=== PATIENT | female | born 1980 | race African-American/Black ===

== ENCOUNTER 2018-04-26 18:56 | Emergency (ER) | payer OTHER ==
[~2018-04-26] VITALS: Ht 157.5 cm; Wt 93.9 kg
[2018-04-26 19:08] VITALS: Ht 157.5 cm; Wt 93.9 kg
[2018-04-26 20:47] LABS: BASOPHIL % 0.4 % (0-2); PLATELET COUNT 214 x10^3mcL (130-400); RED CELL DISTRIBUTION WIDTH 13.3 % (11.5-14.5)
[2018-04-26 21:13] LABS: CK-MB 0.5 ng/mL (0-3.6)
[2018-04-26 21:47] LABS: AMPHETAMINE QUAL UR NONE DETECTED (See below)
[2018-04-26 21:49] LABS: CALCIUM 8.7 mg/dL (8.5-10.1); CARBON DIOXIDE 29.2 mmol/L (21-32); CHLORIDE SERUM 103 mmol/L (98-107); CREATININE SERUM 0.8 mg/dL (0.6-1.0); GFR1 > 60 mL/min; GLUCOSE SERUM 88 mg/dL (74-106); POTASSIUM SERUM 3.7 mmol/L (3.5-5.1); SODIUM SERUM 139 mmol/L (136-145)
[2018-04-26 21:54] LABS: ALBUMIN 3.6 g/dL (3.4-5.0); ALKALINE PHOSPHATASE 80 U/L (46-116); ALT/SGPT 23 U/L (14-59); AST/SGOT 24 U/L (15-37); BILIRUBIN TOTAL 0.4 mg/dL (0.20-1.00)
[2018-04-27 00:19] VITALS: BP 126/76
== END 2018-04-27 00:19 | disposition home or self-care (01) ==
LOC: ED 18:56
PROVIDERS: Emergency Medicine
DX: R51 Headache (principal); I10 Essential (primary) hypertension
CPT/HCPCS: G0480; J1885; J2270; J2550; J7030; Q0092